=== PATIENT | female | born 1995 | race Caucasian/White ===

== ENCOUNTER 2018-01-12 12:22 | Emergency (ER) | payer SELFPAY ==
[~2018-01-12] VITALS: Ht 152.4 cm; Wt 59.1 kg
[2018-01-12] MEDS ORDERED: HYDROCODONE/ACETAMINOPHEN 5/325MG TABLET PO ONE (15:15)
[2018-01-12 15:37] LABS: CHLORIDE 104 mEq/L (98-107); INR 0.9; PROTHROMBIN TIME 9.3 sec (9.1-11.1)
[2018-01-12 15:43] LABS: BASOPHILS % 0.1 % (0.0-2.0); EOSINOPHILS % 0.7 % (0.0-5.0); HEMATOCRIT. 26.7 % (36.0-48.0); HEMOGLOBIN. 8.2 g/dL (12.0-16.0); LYMPHOCYTES % 14.7 % (20.0-50.0); MEAN CORPUSCULAR HEMOGLOBIN 20.7 pg (28.0-32.0); MEAN CORPUSCULAR VOLUME 67.4 fL (81.0-99.0); MEAN PLATELET VOLUME 7.7 fl (7.4-10.4); MONOCYTES % 6.2 % (2.0-8.0); NEUTROPHILS % 78.3 % (40.0-76.0); PLATELET 436 x1000/uL (130-400); RED BLOOD CELL COUNT 3.96 mill/uL (4.2-5.4); RED CELL DISTRIBUTION WIDTH 18.1 % (11.6-14.6)
[2018-01-12 15:43] LABS: CLARITY URINE TURBID (CLEAR); COLOR URINE YELLOW (YELLOW); KETONES URINE NEGATIVE (NEGATIVE); LEUKOCYTE ESTERASE URINE 3+ (NEGATIVE); NITRITE URINE POSITIVE (NEGATIVE); OCCULT BLOOD URINE 1+ (NEGATIVE); PROTEIN URINE 2+ (NEGATIVE); SPECIFIC GRAVITY URINE 1.018 (1.005-1.030)
[2018-01-12 15:54] LABS: *BARBITURATES SCREEN URINE NEGATIVE (NEGATIVE); *BENZODIAZEPINES SCREEN URINE NEGATIVE (NEGATIVE); *COCAINE SCREEN URINE NEGATIVE (NEGATIVE); CANNABINOID URINE SCREEN NEGATIVE (NEGATIVE); METHADONE URINE SCREEN NEGATIVE (NEGATIVE); OPIATES URINE SCREEN NEGATIVE (NEGATIVE); PHENCYCLIDINE URINE SCREEN NEGATIVE (NEGATIVE)
[2018-01-12 15:55] LABS: *AMPHETAMINES SCREEN URINE PRESUMTIVE POSITIVE (NEGATIVE)
[2018-01-12 16:00] LABS: B-HCG QUANTITATIVE 9529 mIU/mL (<3)
[2018-01-12 16:25] LABS: PLATELET ESTIMATE SLIGHTLY INCREASED
[2018-01-12 20:11] VITALS: BP 102/63
[2018-01-13] MEDS ORDERED: PNV1TABL50 MT (00:50)
== END 2018-01-12 20:13 | disposition home or self-care (01) ==
LOC: ER 15:41
DX: O23.42 Unspecified infection of urinary tract in pregnancy, second trimester (principal); O20.0 Threatened abortion; O26.892 Other specified pregnancy related conditions, second trimester; M54.5 Low back pain; R10.9 Unspecified abdominal pain; F15.10 Other stimulant abuse, uncomplicated; Z3A.22 22 weeks gestation of pregnancy; Z98.890 Other specified postprocedural states
CPT/HCPCS: 36415; 76770; 76805; 80305; 81025; 84702; 86850; 86900; 87077; 87186; 99285

== ENCOUNTER 2018-01-13 00:10 | Observation (INO) | payer SELFPAY ==
[~2018-01-13] VITALS: Ht 152.4 cm; Wt 59.0 kg
[2018-01-13] MEDS ORDERED: PNV1TABL50 MT (00:50)
== END 2018-01-13 01:05 | disposition home or self-care (01) ==
LOC: L&D 00:10
PROVIDERS: ADMIT Obstetrics & Gynecology; ATTEND Obstetrics & Gynecology
DX: O26.852 Spotting complicating pregnancy, second trimester (principal); Z3A.24 24 weeks gestation of pregnancy
CPT/HCPCS: 99281; G0378